=== PATIENT | female | born 1965 | race Caucasian/White ===

== ENCOUNTER 2018-07-08 16:54 | Observation (INO) | payer OTHER ==
--- NOTE | 2018-07-08 17:04 | ER Document Report ---
ED Medical Screen (RME) - General Chief Complaint: Numbness of Face Stated Complaint: FACIAL/ARM NUMBNESS Time Seen by Provider: 07/08/18 17:01 Mode of Arrival: Ambulatory Information source: Patient Notes: Patient is a 53-year-old female with past medical history of hypertension who presents to the emergency department with intermittent episodes of right facial numbness that extends down into her right arm. She states that these episodes started around 1230 today. She denies any weakness to the extremity. Currently all symptoms are resolved. She states that this has happened several times today intermittently. She reports compliance with her antihypertensives, states her blood pressures usually well controlled, states she had it checked today at work and it was elevated. Blood pressure on arrival is 177/102. Patient is completely alert, oriented and in no acute distress. Exam: Heart sounds S1-S2 present Lung sounds clear to auscultation Patient ambulating with steady gait Equal upper extremity strength No facial drooping noted. I have greeted and performed a rapid initial assessment of this patient. A comprehensive ED assessment and evaluation of the patient, analysis of test results and completion of the medical decision making process will be conducted by additional ED providers. Dictation of this chart was performed using voice recognition software; therefore, there may be some unintended grammatical errors. TRAVEL OUTSIDE OF THE [place] IN LAST 30 DAYS: No - Related Data Allergies/Adverse Reactions: erythromycin base Allergy (Verified 07/08/18 16:55) Penicillins Allergy (Verified 07/08/18 16:55) Physical Exam - Vital signs Vitals: Temp Pulse Resp BP Pulse Ox 98.5 F 95 18 177/102 H 99 07/08/18 16:57 07/08/18 16:57 07/08/18 16:57 07/08/18 16:57 07/08/18 16:57 Course - Vital Signs Vital signs: Temp Pulse Resp BP Pulse Ox 98.5 F 95 18 177/102 H 99 07/08/18 16:57 07/08/18 16:57 07/08/18 16:57 07/08/18 16:57 07/08/18 16:57 Doctor's Discharge - Discharge Referrals: SRIDEVI BUTCHER MD [Primary Care Provider] - Follow up as needed
--- NOTE | 2018-07-08 17:29 | ER Document Report ---
Doctor's Note Notes: 07/08/18 17:28 Dr. Adams, radiologist called and states head CT is negative for any bleed.
--- NOTE | 2018-07-08 17:35 | RADIOLOGY REPORT (SQ) ---
EXAM DESCRIPTION: CT HEAD WITHOUT COMPLETED DATE/TIME: 07/08/2018 5:07 pm REASON FOR STUDY: stroke symptoms COMPARISON: None. TECHNIQUE: Axial images acquired through the brain without intravenous contrast. Images reviewed wi th bone, brain and subdural windows. Additional sagittal and coronal reconstructions were generated. Images stored on PACS. All CT scanners at this facility use dose modulation, iterative reconstruction, and/or weight based d osing when appropriate to reduce radiation dose to as low as reasonably achievable (ALARA). [facility]: Dose Right [facility]: CareDose [facility]: Dose Right [facility]: Teradose 4D [facility]: Taamkru RADIATION DOSE: CT Rad equipment meets quality standard of care and radiation dose reduction techniq ues were employed. CTDIvol: 53.2 mGy. DLP: 1017 mGy-cm. mGy. LIMITATIONS: None. FINDINGS: VENTRICLES: Normal size and contour. CEREBRUM: No masses. No hemorrhage. No midline shift. No evidence for acute infarction. Normal gra y/white matter differentiation. No areas of low density in the white matter. CEREBELLUM: No masses. No hemorrhage. No alteration of density. No evidence for acute infarction. EXTRAAXIAL SPACES: No fluid collections. No masses. ORBITS AND GLOBE: No intra- or extraconal masses. Normal contour of globe without masses. CALVARIUM: No fracture. PARANASAL SINUSES: No fluid or mucosal thickening. SOFT TISSUES: No mass or hematoma. OTHER: No other significant finding. IMPRESSION: NORMAL BRAIN CT WITHOUT CONTRAST. EVIDENCE OF ACUTE STROKE: NO. COMMENT: Pertinent findings on the imaging study reported as a CRITICAL RESULT to AMELIA pardo t17:29 on 07/08/2018. Quality ID # [id number]: Final reports with documentation of one or more dose reduction techniques (e.g., Au tomated exposure control, adjustment of the mA and/or kV according to patient size, use of iterative reconstruction technique) TECHNICAL DOCUMENTATION: JOB ID: [id number] [employer]- All Rights Reserved Reading location - IP/workstation name: [email or web address]
[2018-07-08 17:42] LABS: ABSOLUTE BASOPHILS # (AUTO) 0.1 10^3/uL (0.0-0.2); ABSOLUTE EOSINOPHILS # (AUTO) 0.2 10^3/uL (0.0-0.6); ABSOLUTE LYMPHOCYTES (AUTO) 2.1 10^3/uL (0.5-4.7); ABSOLUTE MONOCYTES (AUTO) 0.6 10^3/uL (0.1-1.4); ABSOLUTE NEUT (AUTO) 4.8 10^3/uL (1.7-8.2); BASOPHILS % (AUTO) 0.7 % (0-2); EOSINOPHILS % (AUTO) 2.5 % (0-6); HEMATOCRIT 38.7 % (36.0-47.0); HEMOGLOBIN 13.1 g/dL (12.0-15.5); LYMPHOCYTES % (AUTO) 26.9 % (13-45); MEAN CORPUSCULAR HEMOGLOBIN 30.3 pg (27.0-33.4); MEAN CORPUSCULAR HGB CONC 33.8 g/dL (32.0-36.0); MEAN CORPUSCULAR VOLUME 90 fl (80-97); MONOCYTES % (AUTO) 7.7 % (3-13); PLATELET COUNT 360 10^3/uL (150-450); RED BLOOD COUNT 4.31 10^6/uL (3.72-5.28); RED CELL DISTRIBUTION WIDTH 14.4 % (11.5-14.0); SEGMENTED NEUTROPHILS % (AUTO) 62.2 % (42-78); TOTAL CELLS COUNTED % (AUTO) 100 %; WHITE BLOOD COUNT 7.7 10^3/uL (4.0-10.5)
[2018-07-08 17:44] LABS: INTERNATIONAL RATION (INR) 0.85
--- NOTE | 2018-07-08 17:44 | RADIOLOGY REPORT (SQ) ---
EXAM DESCRIPTION: CHEST SINGLE VIEW COMPLETED DATE/TIME: 07/08/2018 5:10 pm REASON FOR STUDY: stroke symptoms COMPARISON: None. EXAM PARAMETERS: NUMBER OF VIEWS: One view. TECHNIQUE: Single frontal radiographic view of the chest acquired. RADIATION DOSE: NA LIMITATIONS: None. FINDINGS: LUNGS AND PLEURA: No opacities, masses or pneumothorax. No pleural effusion. MEDIASTINUM AND HILAR STRUCTURES: No masses. Contour normal. HEART AND VASCULAR STRUCTURES: Heart normal in size. Normal vasculature. BONES: No acute findings. HARDWARE: None in the chest. OTHER: No other significant finding. IMPRESSION: NO ACUTE RADIOGRAPHIC FINDING IN THE CHEST. TECHNICAL DOCUMENTATION: JOB ID: [id number] [employer]- All Rights Reserved Reading location - IP/workstation name: [email or web address]
[2018-07-08 17:45] LABS: PARTIAL THROMBOPLASTIN TIME 30.1 SEC (23.5-35.8)
[2018-07-08 18:00] LABS: ALANINE AMINOTRANSFERASE 64 U/L (9-52); ALBUMIN 4.5 g/dL (3.5-5.0); ALKALINE PHOSPHATASE 73 U/L (38-126); ANION GAP 9 (5-19); ASPARTATE AMINO TRANSFERASE 39 U/L (14-36); BILIRUBIN,DIRECT 0.2 mg/dL (0.0-0.4); BILIRUBIN,TOTAL 0.4 mg/dL (0.2-1.3); BLOOD UREA NITROGEN 21 mg/dL (7-20); CALCIUM 9.6 mg/dL (8.4-10.2); CARBON DIOXIDE 26 mmol/L (22-30); CHLORIDE 103 mmol/L (98-107); CREATINE KINASE 70 U/L (30-135); GLUCOSE 99 mg/dL (75-110); POTASSIUM 4.3 mmol/L (3.6-5.0); SODIUM 138.2 mmol/L (137-145); TOTAL PROTEIN 7.8 g/dL (6.3-8.2)
[2018-07-08] MEDS ORDERED: ASPIRIN 81 MG TABLET, CHEWABLE PO ONE (18:06)
--- NOTE | 2018-07-08 18:09 | ER Document Report ---
ED Neuro Symptoms/Deficit - General Chief Complaint: Numbness of Face Stated Complaint: FACIAL/ARM NUMBNESS Time Seen by Provider: 07/08/18 17:01 Mode of Arrival: Ambulatory Information source: Patient TRAVEL OUTSIDE OF THE [place] IN LAST 30 DAYS: No - HPI Patient complains to provider of: Paresthesia, Weakness Onset: This afternoon Awoke with symptoms: No Symptoms are: Intermittent episodes Duration: Better Quality of pain: No pain Loss of consciousness: No loss of consciousness Was STROKE ALERT Called: No Baseline Cognitive: Alert, oriented X 3 Baseline Gait: Walks w/o assistance New weakness: RUE, RLE Altered sensation: RUE, R facial Similar symptoms previously: No Recently seen / treated by doctor: No Notes: Patient is a 53-year-old female presenting to the emergency room today complaining of right-sided facial numbness with right upper extremity numbness starting around 1230 today, states she felt a bejnamin come over her at the time lasting approximately 1 minute but the numbness and tingling symptoms lasted a few minutes after that, then the symptoms seem to completely resolve but return ed several times throughout the day prompting her to come to the emergency department for evaluation, patient has a history of hypertension and psoriasis, she reports her brother has a history of TIAs, she denies any other change in her routine lately, has not missed any doses of medication, no recent medication changes, she also complains of a metallic taste in her mouth - Related Data Allergies/Adverse Reactions: erythromycin base Allergy (Verified 07/08/18 16:55) Penicillins Allergy (Verified 07/08/18 16:55) Past Medical History - General Information source: Patient - Social History Smoking Status: Former Smoker Frequency of alcohol use: None Drug Abuse: None Family History: Reviewed & Not Pertinent Patient has suicidal ideation: No Patient has homicidal ideation: No - Past Medical History Cardiac Medical History: Reports: Hx Hypertension Renal/ Medical History: Denies: Hx Peritoneal Dialysis Past Surgical History: Reports: Hx Gynecologic Surgery - tbl Review of Systems - Review of Systems Constitutional: No symptoms reported EENT: No symptoms reported Cardiovascular: No symptoms reported Respiratory: No symptoms reported Gastrointestinal: No symptoms reported Genitourinary: No symptoms reported Female Genitourinary: No symptoms reported Musculoskeletal: No symptoms reported Skin: No symptoms reported Hematologic/Lymphatic: No symptoms reported Neurological/Psychological: See HPI -: Yes All other systems reviewed and negative Physical Exam - Vital signs Vitals: Temp Pulse Resp BP Pulse Ox 98.5 F 95 18 177/102 H 99 07/08/18 16:57 07/08/18 16:57 07/08/18 16:57 07/08/18 16:57 07/08/18 16:57 Interpretation: Normal - General General appearance: Appears well, Alert - HEENT Head: Normocephalic, Atraumatic Eyes: Normal Pupils: PERRL - Respiratory Respiratory status: No respiratory distress Chest status: Nontender Breath sounds: Normal Chest palpation: Normal - Cardiovascular Rhythm: Regular Heart sounds: Normal auscultation Murmur: No - Abdominal Inspection: Normal Distension: No distension Bowel sounds: Normal Tenderness: Nontender Organomegaly: No organomegaly - Back Back: Normal, Nontender - Extremities General upper extremity: Normal inspection, Nontender, Normal color, Normal ROM, Normal temperature General lower extremity: Normal inspection, Nontender, Normal color, Normal ROM, Normal temperature, Normal weight bearing. No: Roman's sign - Neurological Neuro grossly intact: Yes Cognition: Normal Orientation: AAOx4 [place] Coma Scale Eye Opening: Spontaneous Archana Coma Scale Verbal: Oriented [place] Coma Scale Motor: Obeys Commands [place] Coma Scale Total: 15 Speech: Normal Motor strength normal: LUE, LLE. No: RUE - 4 out of 5 strength, RLE - 4 out of 5 strength Additional motor exam normals: No: Involuntary movements, Pronator drift Sensory: Other - Decreased sensation to the right midface - Psychological Associated symptoms: Normal affect, Normal mood - Skin Skin Temperature: Warm Skin Moisture: Dry Skin Color: Normal Course - Re-evaluation Re-evalutation: 07/08/18 22:19 Patient has very mildly discernible weakness in the right upper and lower extremity with decreased sensation to the right midface, evaluation thus far is unremarkable, however given patient's age, strong family history and history of hypertension patient was discussed with the hospitalist service who agrees to admit for further evaluation and treatment of possible CVA versus TIA, since patient came to the emergency room after 3 hours of onset of symptoms she does not meet criteria for TPA at this time, plan was discussed with patient and family at bedside who are in agreement Patient was discussed with hospitalist service who agrees to admit for further evaluation and treatment - Vital Signs Vital signs: Temp Pulse Resp BP Pulse Ox 98.5 F 79 21 H 139/89 H 95 07/08/18 16:57 07/08/18 21:30 07/08/18 20:00 07/08/18 20:00 07/08/18 20:00 - Laboratory Result Diagrams: 07/08/18 17:20 07/08/18 17:20 Laboratory results interpreted by me: 07/08/18 07/08/18 17:20 17:20 RDW 14.4 H BUN 21 H AST 39 H ALT 64 H - Diagnostic Test Radiology reviewed: Image reviewed, Reports reviewed Discharge - Discharge Clinical Impression: Acute CVA (cerebrovascular accident) Condition: Stable Disposition: ADMITTED INPATIENT Admitting Provider: Hospitalist Unit Admitted: [facility]
[2018-07-08 18:10] LABS: CREATINE KINASE MB 0.54 ng/mL (<4.55); TROPONIN I < 0.012 ng/mL
[2018-07-08] MEDS ORDERED: ONDANSETRON HCL INJ/PF 4 MG/2 ML SDV IV PRN (18:48)
[2018-07-08] MEDS ORDERED: HYDRALAZINE HCL INJ/PF 20 MG/1 ML SDV IV PRN (18:59)
--- NOTE | 2018-07-08 19:10 | PDOC H&P ---
History of Present Illness Admission Date/PCP: 07/08/18 18:34 LEXI CALIXTO MD Patient complains of: Right facial numbness and right arm numbness History of Present Illness: AYANA ARMSTRONG is a 53 year old female with history of hypertension came to the emergency room with complaints of right facial numbness and right arm numbness started around 12:30 PM today. According to her she was in her office sitting all of a sudden she felt numbness in the right home along with the facial numbness it moved to her head she almost felt like passed out followed by a benjamin of heat and as things eased off then it happened again several times decided to came to the emergency room for further evaluation during the episode she denies any nausea vomiting felt like metallic taste in the mouth denies any headaches denies any loss of consciousness denies any biting the tongue but complaining of palpitations during the episode.. She complained like her heart heart is racing. She never had this problem before. She had episode of headache this morning took ibuprofen. The emergency room workup was done and by the time she came to the emergency room she is out of the TPA protocol. CT head came back negative. Patient symptom improved in the emergency room. Went on examination patient alert and oriented communicating well and able to give good history. Past Medical History Cardiac Medical History: Reports: Hypertension Past Surgical History Past Surgical History: Reports: Tubal Ligation Social History Smoking Status: Never Smoker Frequency of Alcohol Use: Rare Drugs: None - Advance Directive Resuscitation Status: Full Code Family History Parental Family History Reviewed: Yes - Mother with history of congestive heart failure bypass. Children Family History Reviewed: Yes Sibling(s) Family History Reviewed.: Yes Medication/Allergy Allergies/Adverse Reactions: erythromycin base Allergy (Verified 07/08/18 16:55) Penicillins Allergy (Verified 07/08/18 16:55) Review of Systems Constitutional: PRESENT: weakness. ABSENT: chills, fever(s), headache(s), night sweats Eyes: ABSENT: visual disturbances Ears: ABSENT: hearing changes Nose, Mouth, and Throat: ABSENT: sore throat, vertigo Cardiovascular: ABSENT: chest pain, dyspnea on exertion Respiratory: ABSENT: dyspnea, hemoptysis Gastrointestinal: PRESENT: diarrhea. ABSENT: nausea, vomiting Neurological: ABSENT: focal weakness, numbness, paresthesias Psychiatric: ABSENT: anxiety, depression, homidical ideation, suicidal ideation Physical Exam Vital Signs: Temp Pulse Resp BP Pulse Ox 98.5 F 83 24 H 158/90 H 99 07/08/18 16:57 07/08/18 17:15 07/08/18 18:00 07/08/18 17:16 07/08/18 18:00 Intake & Output 07/07/18 07/08/18 07/09/18 06:59 06:59 06:59 Weight 95.5 kg General appearance: PRESENT: no acute distress Head exam: PRESENT: atraumatic Eye exam: PRESENT: PERRLA Ear exam: PRESENT: normal external ear exam Mouth exam: PRESENT: moist Neck exam: ABSENT: carotid bruit, JVD, lymphadenopathy, thyromegaly Respiratory exam: PRESENT: clear to auscultation mis. ABSENT: rales, rhonchi, wheezes Cardiovascular exam: PRESENT: RRR. ABSENT: diastolic murmur, rubs, systolic murmur GI/Abdominal exam: PRESENT: normal bowel sounds, soft. ABSENT: distended, guarding, mass, organolmegaly, rebound, tenderness Neurological exam: PRESENT: alert, awake, oriented to person, oriented to place, oriented to time, oriented to situation, CN II-XII grossly intact, other - Complaining of right facial numbness and tingling. ABSENT: motor sensory deficit Psychiatric exam: PRESENT: appropriate affect, normal mood. ABSENT: homicidal ideation, suicidal ideation Results Laboratory Results: 07/08/18 17:20 07/08/18 17:20 07/08/18 07/08/18 07/08/18 17:20 17:20 17:20 WBC 7.7 RBC 4.31 Hgb 13.1 Hct 38.7 MCV 90 MCH 30.3 MCHC 33.8 RDW 14.4 H Plt Count 360 Seg Neutrophils % 62.2 Lymphocytes % 26.9 Monocytes % 7.7 Eosinophils % 2.5 Basophils % 0.7 Absolute Neutrophils 4.8 Absolute Lymphocytes 2.1 Absolute Monocytes 0.6 Absolute Eosinophils 0.2 Absolute Basophils 0.1 Sodium 138.2 Potassium 4.3 Chloride 103 Carbon Dioxide 26 Anion Gap 9 BUN 21 H Creatinine 0.80 Est GFR ( Amer) > 60 Est GFR (Non-Af Amer) > 60 Glucose 99 Calcium 9.6 Magnesium 1.8 Total Bilirubin 0.4 AST 39 H ALT 64 H Alkaline Phosphatase 73 Total Protein 7.8 Albumin 4.5 07/08/18 07/08/18 17:20 17:20 Creatine Kinase 70 CK-MB (CK-2) 0.54 Troponin I < 0.012 Impressions: Chest X-Ray 07/08/18 00:00 IMPRESSION: NO ACUTE RADIOGRAPHIC FINDING IN THE CHEST. Head CT 07/08/18 00:00 IMPRESSION: NORMAL BRAIN CT WITHOUT CONTRAST. EVIDENCE OF ACUTE STROKE: NO. Assessment & Plan - Diagnosis (1) Transient ischemia Is this a current diagnosis for this admission?: Yes Plan: 07/08/2018-plan is to admit the patient in telemetry MRI of the brain without contrast was requested, carotid Doppler was requested, he code stroke protocol was implemented by starting aspirin 325 mg p.o. daily Plavix 75 mg p.o. daily simvastatin 20 mg p.o. nightly neurochecks were requested. Swallowing evaluation was requested under lipid panel was requested tomorrow morning carotid. A consult was requested. He was placed in observation. (2) HTN (hypertension) Qualifiers: Hypertension type: essential hypertension Qualified Code(s): I10 - Essential (primary) hypertension Is this a current diagnosis for this admission?: Yes Plan: 07/08/2018 patient has history of hypertension she takes medications at home unfortunately she do not have the medications with her right now blood pressure initially is 177/78 came down to 158/90. I started her on amlodipine 10 mg p.o. daily hydralazine 5 mg IV every 6 as needed for blood pressure more than 150. We are going to check the blood pressures every shift. (3) Obesity (BMI 30-39.9) Is this a current diagnosis for this admission?: Yes Plan: 07/08/2018-patient's BMI is more than 30. Diet exercise weight loss lifestyle modification were discussed. - Time Time Spent: 50 to 70 Minutes Critical Time spent with patient: 15-24 minutes Anticipated discharge: Home
[2018-07-08] MEDS: ACETAMINOPHEN 325 MG TABLET PO PRN (20:59)
[2018-07-08] MEDS: SIMVASTATIN 10 MG TABLET PO SCH (22:50)
[2018-07-08] MEDS: AMLODIPINE BESYLATE 10 MG TABLET PO SCH (22:51)
[2018-07-08] MEDS: FAMOTIDINE 20 MG TABLET PO SCH (22:51)
[2018-07-08] MEDS: ZOLPIDEM TARTRATE 5 MG TABLET PO SCH (22:51)
[2018-07-09 00:04] LABS: CREATINE KINASE MB 0.48 ng/mL (<4.55)
[2018-07-09 00:18] LABS: TROPONIN I < 0.012 ng/mL
[2018-07-09 06:01] LABS: ABSOLUTE BASOPHILS # (AUTO) 0.1 10^3/uL (0.0-0.2); ABSOLUTE EOSINOPHILS # (AUTO) 0.3 10^3/uL (0.0-0.6); ABSOLUTE LYMPHOCYTES (AUTO) 1.5 10^3/uL (0.5-4.7); ABSOLUTE MONOCYTES (AUTO) 0.5 10^3/uL (0.1-1.4); ABSOLUTE NEUT (AUTO) 3.6 10^3/uL (1.7-8.2); BASOPHILS % (AUTO) 0.9 % (0-2); EOSINOPHILS % (AUTO) 4.6 % (0-6); HEMATOCRIT 37.6 % (36.0-47.0); HEMOGLOBIN 12.8 g/dL (12.0-15.5); MEAN CORPUSCULAR HEMOGLOBIN 30.4 pg (27.0-33.4); MEAN CORPUSCULAR VOLUME 90 fl (80-97); PLATELET COUNT 289 10^3/uL (150-450); RED CELL DISTRIBUTION WIDTH 14.6 % (11.5-14.0); SEGMENTED NEUTROPHILS % (AUTO) 60.5 % (42-78); TOTAL CELLS COUNTED % (AUTO) 100 %; WHITE BLOOD COUNT 5.9 10^3/uL (4.0-10.5)
[2018-07-09 06:29] LABS: ALANINE AMINOTRANSFERASE 54 U/L (9-52); ALBUMIN 3.8 g/dL (3.5-5.0); ALKALINE PHOSPHATASE 65 U/L (38-126); ANION GAP 7 (5-19); ASPARTATE AMINO TRANSFERASE 34 U/L (14-36); BILIRUBIN,DIRECT 0.2 mg/dL (0.0-0.4); BILIRUBIN,TOTAL 0.4 mg/dL (0.2-1.3); BLOOD UREA NITROGEN 17 mg/dL (7-20); CALCIUM 9.3 mg/dL (8.4-10.2); CARBON DIOXIDE 26 mmol/L (22-30); CHLORIDE 106 mmol/L (98-107); CHOLESTEROL 202.86 mg/dL (0-200); CREATINE KINASE 53 U/L (30-135); GLUCOSE 105 mg/dL (75-110); POTASSIUM 4.3 mmol/L (3.6-5.0); SODIUM 139.3 mmol/L (137-145); TOTAL PROTEIN 6.8 g/dL (6.3-8.2); TRIGLYCERIDES 150 mg/dL (<150)
[2018-07-09 06:32] LABS: CREATINE KINASE MB 0.48 ng/mL (<4.55)
[2018-07-09 06:39] LABS: TROPONIN I < 0.012 ng/mL
[2018-07-09 06:40] LABS: DIRECT LDL 118 mg/dL (<100)
--- NOTE | 2018-07-09 08:24 | RADIOLOGY REPORT (SQ) ---
EXAM DESCRIPTION: CAROTID DOPPLER COMPLETED DATE/TIME: 07/08/2018 8:44 pm REASON FOR STUDY: tia COMPARISON: CT brain 07/08/2018, 1702 hours TECHNIQUE: Grayscale ultrasound, Doppler velocity and spectra, and color Doppler images acquired of the extra-cranial carotid and vertebral arteries. Images stored on PACS. LIMITATIONS: None. FINDINGS: RIGHT CAROTID CCA Velocities: Within normal limits. 0.78 m/sec ICA Velocities Peak systolic 88 m/s. End diastolic 23 m/s. Proximal ICA/CCA peak systolic ratio normal. Spectra normal. No significant plaque. LEFT CAROTID CCA Velocities: Within normal limits. 0.91 m/sec ICA Velocities Peak systolic 0.96 m/s. End diastolic 0.24 m/s. Proximal ICA/CCA peak systolic ratio normal. Spectra normal. Calcific plaque at the origin of the left external carotid artery with 50% ECA steno sis. VERTEBRAL ARTERIES: Antegrade flow. Normal waveforms. SUBCLAVIAN ARTERIES: Not evaluated OTHER: No other significant finding. IMPRESSION: NO HEMODYNAMICALLY SIGNIFICANT STENOSIS OF THE RIGHT OR LEFT PROXIMAL INTERNAL CAROTID A RTERIES. COMMENT: Quality ID #[id number]: Velocity criteria are extrapolated from the diameter data as defined by t he Society of Radiologists in Ultrasound Consensus Conference. Radiology 2003: 229; 340-346. TECHNICAL DOCUMENTATION: JOB ID: [id number] [employer]- All Rights Reserved Reading location - IP/workstation name: [email or web address]
--- NOTE | 2018-07-09 09:39 | RADIOLOGY REPORT (SQ) ---
EXAM DESCRIPTION: MRI HEAD WITHOUT COMPLETED DATE/TIME: 07/09/2018 8:46 am REASON FOR STUDY: tia COMPARISON: CT brain, 07/08/2018 TECHNIQUE: Multiplanar imaging includes non-contrasted T1, T2, FLAIR, and diffusion with ADC map seq uences. Images stored on PACS. LIMITATIONS: None. FINDINGS: ANATOMY: No anomalies. Normal vascular flow voids. Pituitary fossa normal. CSF SPACES: Normal in size and contour. No hemorrhage. CEREBRUM: Sulci and gyri normal in size and contour. Normal white matter signal on FLAIR imaging. No evidence of hemorrhage, mass, or extraaxial fluid collection. POSTERIOR FOSSA: No signal alteration. No hemorrhage. No edema, masses or mass effect. Internal olvin tory canals, cerebello-pontine angles, mastoids normal. DIFFUSION IMAGING: Negative for acute or sub-acute infarction. ORBITS: No masses. Globes normal. PARANASAL SINUSES: No fluid levels. Mucosa normal. OTHER: No other significant finding. IMPRESSION: Normal noncontrast MR examination of the brain. No evidence of acute diffusion restrict ing infarction or other findings to explain symptoms. EVIDENCE OF ACUTE STROKE: NO. TECHNICAL DOCUMENTATION: JOB ID: [id number] [employer]- All Rights Reserved Reading location - IP/workstation name: [email or web address]
[2018-07-09] MEDS ORDERED: DOCUSATE SODIUM 100 MG/10 ML UDC PO SCH (10:00)
[2018-07-09] MEDS: ACETAMINOPHEN 325 MG TABLET PO PRN (11:25)
[2018-07-09] MEDS: ASPIRIN 325 MG TABLET PO SCH (11:26)
[2018-07-09] MEDS: FAMOTIDINE 20 MG TABLET PO SCH ×2 (11:27→22:14)
[2018-07-09] MEDS: CLOPIDOGREL BISULFATE 75 MG TABLET PO SCH (11:28)
[2018-07-09] MEDS: ENOXAPARIN SODIUM INJ 40 MG/0.4 ML DISP.SYRIN SUBCUT SCH (11:28)
[2018-07-09 12:34] LABS: CREATINE KINASE MB 0.48 ng/mL (<4.55)
[2018-07-09 12:41] LABS: TROPONIN I < 0.012 ng/mL
--- NOTE | 2018-07-09 13:40 | EKG REPORT ---
SEVERITY:- NORMAL ECG - SINUS RHYTHM : Confirmed by: Susan Quinonez MD 09-Jul-2018 13:39:25
--- NOTE | 2018-07-09 13:40 | EKG REPORT ---
SEVERITY:- NORMAL ECG - SINUS RHYTHM : Confirmed by: Susan Quinonez MD 09-Jul-2018 13:39:22
--- NOTE | 2018-07-09 13:43 | PDOC DISCHARGE SUMMARY ---
General - Admit/Disc Date/PCP Admission Date/Primary Care Provider: 07/08/18 18:34 LEXI CALIXTO MD Discharge Date: 07/09/18 - Additional Information Resuscitation Status: Full Code Home Medications: Chlorthalidone [Hygroton 25 mg Tablet] 25 mg PO DAILY 07/08/18 Irbesartan [Avapro] 300 mg PO DAILY 07/08/18 Methotrexate Sodium [Rheumatrex 2.5 mg Tablet] 12.5 mg PO MO@1000 07/08/18 History of Present Illness History of Present Illness: AYANA ARMSTRONG is a 53 year old female with history of hypertension came to the emergency room with complaints of right facial numbness and right arm numbness started around 12:30 PM today. According to her she was in her office sitting all of a sudden she felt numbness in the right home along with the facial numbness it moved to her head she almost felt like passed out followed by a benjamin of heat and as things eased off then it happened again several times decided to came to the emergency room for further evaluation during the episode she denies any nausea vomiting felt like metallic taste in the mouth denies any headaches denies any loss of consciousness denies any biting the tongue but complaining of palpitations during the episode.. She complained like her heart heart is racing. She never had this problem before. She had episode of headache this morning took ibuprofen. The emergency room workup was done and by the time she came to the emergency room she is out of the TPA protocol. CT head came back negative. Patient symptom improved in the emergency room. Went on examination patient alert and oriented communicating well and able to give good history. Hospital Course Hospital Course: Ms. Farah is a very pleasant 53 years old female patient who presented with chief complaint of right face and right arm numbness and tingling sensation which happened yesterday at about 12 noon. Patient does not have significant medical history except hypertension and obesity. Her CT scan and MRI of the brain are negative for acute ischemic process. The numbness in the tingling sensation has subsided. Her vital sign is within normal limits. She has elevated LDL and total cholesterol. Patient advised her to do lifestyle modification. I will send her home with aspirin and Lipitor. Physical Exam Vital Signs: Temp Pulse Resp BP Pulse Ox 98.8 F 84 16 127/72 H 100 07/09/18 11:39 07/09/18 11:39 07/09/18 11:39 07/09/18 11:39 07/09/18 11:39 Intake & Output 07/08/18 07/09/18 07/10/18 06:59 06:59 06:59 Intake Total 894 Balance 894 Weight 94.9 kg General appearance: PRESENT: no acute distress, well-developed, well-nourished Head exam: PRESENT: atraumatic, normocephalic Eye exam: PRESENT: conjunctiva pink, EOMI, PERRLA. ABSENT: scleral icterus Ear exam: PRESENT: normal external ear exam Mouth exam: PRESENT: moist, tongue midline Neck exam: ABSENT: carotid bruit, JVD, lymphadenopathy, thyromegaly Respiratory exam: PRESENT: clear to auscultation mis. ABSENT: rales, rhonchi, wheezes Cardiovascular exam: PRESENT: RRR. ABSENT: diastolic murmur, rubs, systolic murmur Pulses: PRESENT: normal dorsalis pedis pul Vascular exam: PRESENT: normal capillary refill GI/Abdominal exam: PRESENT: normal bowel sounds, soft. ABSENT: distended, guarding, mass, organolmegaly, rebound, tenderness Rectal exam: PRESENT: deferred Extremities exam: PRESENT: full ROM. ABSENT: calf tenderness, clubbing, pedal edema Neurological exam: PRESENT: alert, awake, oriented to person, oriented to place, oriented to time, oriented to situation, CN II-XII grossly intact. ABSENT: motor sensory deficit Psychiatric exam: PRESENT: appropriate affect, normal mood. ABSENT: homicidal ideation, suicidal ideation Skin exam: PRESENT: dry, intact, warm. ABSENT: cyanosis, rash Results Laboratory Results: 07/09/18 05:05 07/09/18 05:05 07/08/18 07/08/18 07/08/18 17:20 17:20 17:20 WBC 7.7 RBC 4.31 Hgb 13.1 Hct 38.7 MCV 90 MCH 30.3 MCHC 33.8 RDW 14.4 H Plt Count 360 Seg Neutrophils % 62.2 Lymphocytes % 26.9 Monocytes % 7.7 Eosinophils % 2.5 Basophils % 0.7 Absolute Neutrophils 4.8 Absolute Lymphocytes 2.1 Absolute Monocytes 0.6 Absolute Eosinophils 0.2 Absolute Basophils 0.1 Sodium 138.2 Potassium 4.3 Chloride 103 Carbon Dioxide 26 Anion Gap 9 BUN 21 H Creatinine 0.80 Est GFR ( Amer) > 60 Est GFR (Non-Af Amer) > 60 Glucose 99 Calcium 9.6 Magnesium 1.8 Total Bilirubin 0.4 AST 39 H ALT 64 H Alkaline Phosphatase 73 Total Protein 7.8 Albumin 4.5 Triglycerides Cholesterol LDL Cholesterol Direct VLDL Cholesterol HDL Cholesterol TSH 07/09/18 07/09/18 07/09/18 05:05 05:05 05:05 WBC 5.9 RBC 4.20 Hgb 12.8 Hct 37.6 MCV 90 MCH 30.4 MCHC 34.0 RDW 14.6 H Plt Count 289 Seg Neutrophils % 60.5 Lymphocytes % 26.0 Monocytes % 8.0 Eosinophils % 4.6 Basophils % 0.9 Absolute Neutrophils 3.6 Absolute Lymphocytes 1.5 Absolute Monocytes 0.5 Absolute Eosinophils 0.3 Absolute Basophils 0.1 Sodium 139.3 Potassium 4.3 Chloride 106 Carbon Dioxide 26 Anion Gap 7 BUN 17 Creatinine 0.73 Est GFR ( Amer) > 60 Est GFR (Non-Af Amer) > 60 Glucose 105 Calcium 9.3 Magnesium 1.9 Total Bilirubin 0.4 AST 34 ALT 54 H Alkaline Phosphatase 65 Total Protein 6.8 Albumin 3.8 Triglycerides 150 Cholesterol 202.86 H LDL Cholesterol Direct 118 H VLDL Cholesterol 30.0 HDL Cholesterol 54 TSH 1.81 07/08/18 07/08/18 07/08/18 17:20 17:20 23:12 Creatine Kinase 70 70 CK-MB (CK-2) 0.54 Troponin I < 0.012 07/08/18 07/09/18 07/09/18 23:12 05:05 05:05 Creatine Kinase 53 CK-MB (CK-2) 0.48 0.48 Troponin I < 0.012 < 0.012 07/09/18 07/09/18 11:06 11:06 Creatine Kinase 53 CK-MB (CK-2) 0.48 Troponin I < 0.012 Impressions: Carotid Doppler Study 07/08/18 00:00 IMPRESSION: NO HEMODYNAMICALLY SIGNIFICANT STENOSIS OF THE RIGHT OR LEFT PROXIMAL INTERNAL CAROTID ARTERIES. Chest X-Ray 07/08/18 00:00 IMPRESSION: NO ACUTE RADIOGRAPHIC FINDING IN THE CHEST. Head CT 07/08/18 00:00 IMPRESSION: NORMAL BRAIN CT WITHOUT CONTRAST. EVIDENCE OF ACUTE STROKE: NO. Head MRI 07/09/18 00:00 IMPRESSION: Normal noncontrast MR examination of the brain. No evidence of acute diffusion restricting infarction or other findings to explain symptoms. EVIDENCE OF ACUTE STROKE: NO. Qualifiers - * PATIENT BEING DISCHARGED WITH ANY OF THE FOLLOWING DIAGNOSIS: No
[2018-07-09] MEDS ORDERED: ALPRAZOLAM 0.5 MG TABLET PO ONE (15:00)
--- NOTE | 2018-07-09 15:19 | RADIOLOGY REPORT (SQ) ---
EXAM DESCRIPTION: CT HEAD WITHOUT COMPLETED DATE/TIME: 07/09/2018 3:06 pm REASON FOR STUDY: Stroke/Tia left arm and leg weakness COMPARISON: CT brain 07/08/2018 MRI brain 07/09/2018 TECHNIQUE: Axial images acquired through the brain without intravenous contrast. Images reviewed wi th bone, brain and subdural windows. Additional sagittal and coronal reconstructions were generated. Images stored on PACS. All CT scanners at this facility use dose modulation, iterative reconstruction, and/or weight based d osing when appropriate to reduce radiation dose to as low as reasonably achievable (ALARA). [facility]: Dose Right [facility]: CareDose [facility]: Dose Right [facility]: Teradose 4D [facility]: Cotendo RADIATION DOSE: CT Rad equipment meets quality standard of care and radiation dose reduction techniq ues were employed. CTDIvol: 48.6 mGy. DLP: 856 mGy-cm. mGy. LIMITATIONS: None. FINDINGS: VENTRICLES: Normal size and contour. CEREBRUM: No masses. No hemorrhage. No midline shift. No evidence for acute infarction. Normal gra y/white matter differentiation. No areas of low density in the white matter. CEREBELLUM: No masses. No hemorrhage. No alteration of density. No evidence for acute infarction. EXTRAAXIAL SPACES: No fluid collections. No masses. ORBITS AND GLOBE: No intra- or extraconal masses. Normal contour of globe without masses. CALVARIUM: No fracture. PARANASAL SINUSES: No fluid or mucosal thickening. SOFT TISSUES: No mass or hematoma. OTHER: No other significant finding. IMPRESSION: NORMAL BRAIN CT WITHOUT CONTRAST. EVIDENCE OF ACUTE STROKE: NO. COMMENT: Quality ID # [id number]: Final reports with documentation of one or more dose reduction techniques (e.g., Automated exposure control, adjustment of the mA and/or kV according to patient size, use of iterative reconstruction technique) TECHNICAL DOCUMENTATION: JOB ID: [id number] [employer]- All Rights Reserved Reading location - IP/workstation name: [email or web address]
--- NOTE | 2018-07-09 15:31 | PDOC PROGRESS REPORT ---
Subjective Progress Note for:: 07/09/18 Subjective:: This is a 53 years old female patient admitted yesterday for sudden onset right face and right arm numbness and tingling sensation. Her CT scan and MRI of the brain are negative. I am about to discharge this patient but all of a sudden patient again started to have the same symptoms of right facial and right arm numbness and tingling sensation. I requested CT head and MRA of the brain. Since patient does not have obvious neurologic deficit TPA was not administered. I will hold the discharge and observe her overnight. Reason For Visit: TIA Physical Exam Vital Signs: Temp Pulse Resp BP Pulse Ox 98.8 F 84 16 127/72 H 100 07/09/18 11:39 07/09/18 12:00 07/09/18 12:00 07/09/18 12:00 07/09/18 12:00 Intake & Output 07/08/18 07/09/18 07/10/18 06:59 06:59 06:59 Intake Total 894 Balance 894 Weight 94.9 kg General appearance: PRESENT: no acute distress, well-developed, well-nourished Head exam: PRESENT: atraumatic, normocephalic Eye exam: PRESENT: conjunctiva pink, EOMI, PERRLA. ABSENT: scleral icterus Ear exam: PRESENT: normal external ear exam Mouth exam: PRESENT: moist, tongue midline Neck exam: ABSENT: carotid bruit, JVD, lymphadenopathy, thyromegaly Respiratory exam: PRESENT: clear to auscultation mis. ABSENT: rales, rhonchi, wheezes Cardiovascular exam: PRESENT: RRR. ABSENT: diastolic murmur, rubs, systolic murmur Pulses: PRESENT: normal dorsalis pedis pul Vascular exam: PRESENT: normal capillary refill GI/Abdominal exam: PRESENT: normal bowel sounds, soft. ABSENT: distended, guarding, mass, organolmegaly, rebound, tenderness Rectal exam: PRESENT: deferred Extremities exam: PRESENT: full ROM. ABSENT: calf tenderness, clubbing, pedal edema Neurological exam: PRESENT: alert, awake, oriented to person, oriented to place, oriented to time, oriented to situation, CN II-XII grossly intact. ABSENT: motor sensory deficit Psychiatric exam: PRESENT: appropriate affect, normal mood. ABSENT: homicidal ideation, suicidal ideation Skin exam: PRESENT: dry, intact, warm. ABSENT: cyanosis, rash Results Laboratory Results: 07/09/18 05:05 07/09/18 05:05 07/08/18 07/08/18 07/08/18 17:20 17:20 17:20 WBC 7.7 RBC 4.31 Hgb 13.1 Hct 38.7 MCV 90 MCH 30.3 MCHC 33.8 RDW 14.4 H Plt Count 360 Seg Neutrophils % 62.2 Lymphocytes % 26.9 Monocytes % 7.7 Eosinophils % 2.5 Basophils % 0.7 Absolute Neutrophils 4.8 Absolute Lymphocytes 2.1 Absolute Monocytes 0.6 Absolute Eosinophils 0.2 Absolute Basophils 0.1 Sodium 138.2 Potassium 4.3 Chloride 103 Carbon Dioxide 26 Anion Gap 9 BUN 21 H Creatinine 0.80 Est GFR ( Amer) > 60 Est GFR (Non-Af Amer) > 60 Glucose 99 Calcium 9.6 Magnesium 1.8 Total Bilirubin 0.4 AST 39 H ALT 64 H Alkaline Phosphatase 73 Total Protein 7.8 Albumin 4.5 Triglycerides Cholesterol LDL Cholesterol Direct VLDL Cholesterol HDL Cholesterol TSH 07/09/18 07/09/18 07/09/18 05:05 05:05 05:05 WBC 5.9 RBC 4.20 Hgb 12.8 Hct 37.6 MCV 90 MCH 30.4 MCHC 34.0 RDW 14.6 H Plt Count 289 Seg Neutrophils % 60.5 Lymphocytes % 26.0 Monocytes % 8.0 Eosinophils % 4.6 Basophils % 0.9 Absolute Neutrophils 3.6 Absolute Lymphocytes 1.5 Absolute Monocytes 0.5 Absolute Eosinophils 0.3 Absolute Basophils 0.1 Sodium 139.3 Potassium 4.3 Chloride 106 Carbon Dioxide 26 Anion Gap 7 BUN 17 Creatinine 0.73 Est GFR ( Amer) > 60 Est GFR (Non-Af Amer) > 60 Glucose 105 Calcium 9.3 Magnesium 1.9 Total Bilirubin 0.4 AST 34 ALT 54 H Alkaline Phosphatase 65 Total Protein 6.8 Albumin 3.8 Triglycerides 150 Cholesterol 202.86 H LDL Cholesterol Direct 118 H VLDL Cholesterol 30.0 HDL Cholesterol 54 TSH 1.81 07/08/18 07/08/18 07/08/18 17:20 17:20 23:12 Creatine Kinase 70 70 CK-MB (CK-2) 0.54 Troponin I < 0.012 07/08/18 07/09/18 07/09/18 23:12 05:05 05:05 Creatine Kinase 53 CK-MB (CK-2) 0.48 0.48 Troponin I < 0.012 < 0.012 07/09/18 07/09/18 11:06 11:06 Creatine Kinase 53 CK-MB (CK-2) 0.48 Troponin I < 0.012 Impressions: Carotid Doppler Study 07/08/18 00:00 IMPRESSION: NO HEMODYNAMICALLY SIGNIFICANT STENOSIS OF THE RIGHT OR LEFT PROXIMAL INTERNAL CAROTID ARTERIES. Chest X-Ray 07/08/18 00:00 IMPRESSION: NO ACUTE RADIOGRAPHIC FINDING IN THE CHEST. Head CT 07/09/18 00:00 IMPRESSION: NORMAL BRAIN CT WITHOUT CONTRAST. EVIDENCE OF ACUTE STROKE: NO. Head MRI 07/09/18 00:00 IMPRESSION: Normal noncontrast MR examination of the brain. No evidence of acute diffusion restricting infarction or other findings to explain symptoms. EVIDENCE OF ACUTE STROKE: NO. Assessment & Plan - Diagnosis (1) Transient ischemia Is this a current diagnosis for this admission?: Yes Plan: Patient has been on aspirin and Plavix. Added Lipitor 20 mg p.o. nightly. We will further manage her based on her CT head and MRA of the brain. (2) HTN (hypertension) Qualifiers: Hypertension type: essential hypertension Qualified Code(s): I10 - Essential (primary) hypertension Is this a current diagnosis for this admission?: Yes Plan: Continue current medication. (3) Obesity (BMI 30-39.9) Is this a current diagnosis for this admission?: Yes Plan: Patient advised to do lifestyle modification.
--- NOTE | 2018-07-09 16:35 | RADIOLOGY REPORT (SQ) ---
EXAM DESCRIPTION: MRA HEAD WITHOUT COMPLETED DATE/TIME: 07/09/2018 4:22 pm REASON FOR STUDY: recurrent TIA multiple episodes of right facial and arm numbness COMPARISON: CT brain 07/08/2018, 07/09/2018 MRI brain 07/09/2018 TECHNIQUE: Axial 3-D [id number] acquisition imaging performed through the brain in the area of t he [place]. Images reformatted using 3-D MIPS. Additional diffusion-weighted images through the brain parenchymal were obtained today. LIMITATIONS: None. FINDINGS: SOURCE IMAGES: No unexpected findings on source images. No large masses. 3-D MIP: No aneurysm. No occlusions. No significant stenosis. OTHER: No other significant finding. Diffusion-weighted images are negative for acute infarct IMPRESSION: NORMAL MRA OF THE [place]. TECHNICAL DOCUMENTATION: JOB ID: [id number] [employer]- All Rights Reserved Reading location - IP/workstation name: [email or web address]
[2018-07-09] MEDS: ZOLPIDEM TARTRATE 5 MG TABLET PO SCH (22:13)
[2018-07-09] MEDS: AMLODIPINE BESYLATE 10 MG TABLET PO SCH (22:14)
[2018-07-09] MEDS: SIMVASTATIN 10 MG TABLET PO SCH (22:14)
--- NOTE | 2018-07-10 09:04 | Progress Note ---
Provider Note Provider Note: This is a brief addendum to discharge summary I myself dictated yesterday to Mrs. Biggs. I was about to discharge this patient yesterday but she started to have the same complaint she had at the time of admission, that is right facial and right arm numbness and tingling sensation. I requested CT head which is reported no acute intracranial process. And MRA of the brain reported as normal [place]. This morning I seen patient resting in bed comfortably she is not in pain or distress she is awake alert and oriented. And she does not have any new complaints. Patient is stable enough to be discharged today.
[2018-07-10] MEDS ORDERED: ONDANSETRON HCL INJ/PF 4 MG/2 ML SDV IV PRN (09:30)
[2018-07-10] MEDS ORDERED: DOCUSATE SODIUM 100 MG CAPSULE PO SCH (10:00)
[2018-07-10] MEDS: FAMOTIDINE 20 MG TABLET PO SCH (10:05)
[2018-07-10] MEDS: ENOXAPARIN SODIUM INJ 40 MG/0.4 ML DISP.SYRIN SUBCUT SCH (10:05)
[2018-07-10] MEDS: ASPIRIN 325 MG TABLET PO SCH (10:05)
[2018-07-10] MEDS: CLOPIDOGREL BISULFATE 75 MG TABLET PO SCH (10:05)
[2018-07-10 11:04] VITALS: BP 127/72
== END 2018-07-10 12:09 | disposition home or self-care (01) ==
LOC: ER 16:54 → EH 18:34 → INTOOBSV 18:34 → 3W 20:48
PROVIDERS: ADMIT Hospitalist; ATTEND Hospitalist
DX: G45.9 Transient cerebral ischemic attack, unspecified (principal); R20.0 Anesthesia of skin; R20.2 Paresthesia of skin; I10 Essential (primary) hypertension; R51 Headache; R00.0 Tachycardia, unspecified; E78.00 Pure hypercholesterolemia, unspecified; R19.7 Diarrhea, unspecified; E66.9 Obesity, unspecified; Z68.39 Body mass index [BMI] 39.0-39.9, adult; M62.81 Muscle weakness (generalized); R43.8 Other disturbances of smell and taste; Z98.51 Tubal ligation status; Z82.49 Family history of ischemic heart disease and other diseases of the circulatory system; Z79.899 Other long term (current) drug therapy; Z84.89 Family history of other specified conditions; Z87.891 Personal history of nicotine dependence
CPT/HCPCS: 93005 ×2; 99285; 36415 ×2; 82553 ×2; 82962; 82550 ×2; 83735 ×2; 84443; 85025 ×2; 85610; 85730; 80053 ×2; 84484 ×2; 80061; 93880; 70551; 70544; 71045; 70450 ×2; 93010 ×2; 97116; 97161; G0378 ×3; J1650 ×2; J3490 ×3